=== PATIENT | female | born 1985 | race Caucasian/White ===

== ENCOUNTER 2019-09-15 13:00 | Day surgery (SDC) | payer BC ==
[2019-09-15 14:04] VITALS: BMI 29.2
[2019-09-15 15:47] LABS: FFN Internal QC Analyzer PASS (PASS); FFN Internal QC Cassette PASS (PASS); Fetal Fibronectin Negative (Negative)
[2019-09-15] MEDS ORDERED: hydrALAZINE 20 MG/ML VIAL SLOW IVP PRN (16:13)
--- NOTE | 2019-09-15 16:46 | PRG ---
DATE OF SERVICE: 09/15/2019 TIME OF SERVICE: 1610 hours. PRESENTING COMPLAINT: Pelvic pressure, 30 weeks' gestation with dichorionic diamniotic twin gestation. HISTORY OF PRESENT ILLNESS: Ms. Osborne is a 34-year-old 2, para 1, with EDC of 220, who was seen by Dr. Jimenez at [facility]. She has known dichorionic diamniotic twin with approximately 20% to 25% discordance and waiting transverse-transverse presentation. Early marginal previa has resolved. The patient reports that she had pressure today without discharge, rupture of membranes, leakage of fluid, or contractions. She was just concerned and wanted to get a check out. She has a scheduled ultrasound with Dr. Jimenez tomorrow. RECORDS CLERK HISTORY: x1. Blood type is A positive, antibody negative. Pap negative. Rubella immune. VDRL nonreactive. Hepatitis B, GC, chlamydia negative. PAST MEDICAL HISTORY: None. PAST SURGICAL HISTORY: Dental. ALLERGIES: NONE. MEDICATIONS: vitamins. SOCIAL HISTORY: Denies tobacco, alcohol, or IV drug use. FAMILY HISTORY: Noncontributory. REVIEW OF SYSTEMS: Noncontributory. PHYSICAL EXAMINATION: GENERAL: White female, in no acute distress. VITAL SIGNS: Blood pressure 110/72, pulse 85, respirations 18, and temperature 98.6. HEENT: Within normal limits. LUNGS: Clear to auscultation bilaterally. HEART: Regular rate and rhythm. ABDOMEN: Soft, nontender with a fundal height of 33 cm. FHTs 140s and 140s. No contractions noted. VULVA: Without lesions. VAGINA: Without discharge. CERVIX: Soft, but fingertip external os, but long, and closed internally. fibronectin was collected prior to cervical exam. EXTREMITIES: No clubbing, cyanosis, or edema. fibronectin was negative. Prolonged monitoring/nonstress test revealed category 1 tracing x2 with no contractions and no decelerations. IMPRESSION: Discomforts of at 30 weeks' gestation with dichorionic diamniotic twins. No evidence of labor with a negative fibronectin. PLAN: Discharge to home. Keep scheduled followup with Dr. Jimenez. XIOMY bose. Job ID: [id number]
== END 2019-09-15 16:18 | disposition home health service (06) ==
LOC: L&D/OP 13:00
PROVIDERS: ATTEND Obstetrics & Gynecology
DX: O30.043 Twin pregnancy, dichorionic/diamniotic, third trimester (principal); Z3A.30 30 weeks gestation of pregnancy
CPT/HCPCS: 82731

== ENCOUNTER 2019-11-03 07:30 | Inpatient (IN) | payer BC ==
[2019-11-07 13:51] VITALS: BMI 30.2
[2019-11-07] MEDS ORDERED: Promethazine HCl 25 MG SUPP PR PRN ×2 (14:06→19:12)
[2019-11-07] MEDS ORDERED: Ketorolac Tromethamine 30 MG/ML VIAL IVP PRN ×2 (14:06→19:12)
[2019-11-07] MEDS ORDERED: Meperidine HCl/PF 25 MG/ML VIAL SLOW IVP PRN (14:06)
[2019-11-07] MEDS ORDERED: Ondansetron HCl/PF 4 MG/2 ML Vial IVP PRN (14:06)
[2019-11-07] MEDS ORDERED: L&D-Morphine 4 MG/ML VIAL SLOW IVP PRN (14:06)
[2019-11-07] MEDS ORDERED: Promethazine HCl 25 MG/ML VIAL IM PRN ×2 (14:06→19:12)
[2019-11-07] MEDS ORDERED: Ondansetron PF 4 MG/2 ML Vial IVP PRN ×3 (14:06→19:12)
[2019-11-07] MEDS ORDERED: HYDROmorphone 2 MG/ML VIAL SLOW IVP PRN (14:06)
[2019-11-07] MEDS ORDERED: Naloxone HCl 0.4 mg/ml Vial IVP PRN ×2 (14:06)
[2019-11-07] MEDS ORDERED: diphenhydrAMINE 50 MG/ML VIAL IVP PRN ×2 (14:06→19:12)
[2019-11-07] MEDS ORDERED: Naloxone HCl 0.4 mg/ml Vial IV PRN ×4 (14:06→19:12)
[2019-11-07] MEDS ORDERED: hydrALAZINE 20 MG/ML VIAL SLOW IVP PRN ×2 (14:13→17:37)
[2019-11-07] MEDS ORDERED: Bicitra 30 ML UDCUP PO SCH (14:15)
[2019-11-07] MEDS ORDERED: PHENYLEPHRINE-NS 100 MCG/ML 10 ML SYRINGE ONE (14:15)
[2019-11-07] MEDS ORDERED: MORPHINE 5 MG/10 ML PF VIAL ONE (14:15)
[2019-11-07] MEDS ORDERED: Oxytocin 10 UNITS/ML VIAL ONE (14:15)
[2019-11-07] MEDS ORDERED: Ketorolac Tromethamine 30 MG/ML VIAL IVP SCH (14:15)
[2019-11-07] MEDS ORDERED: Communication Order-Pharmacy FS SCH (14:15)
[2019-11-07] MEDS ORDERED: Ketorolac Tromethamine 30 MG/ML VIAL ONE (14:16)
[2019-11-07 14:22] LABS: Hemoglobin 11.1 g/dL (12.0-16.0); Mean Corpuscular HGB CONC 33.9 g/dL (32.0-36.0); Mean Corpuscular Hemoglobin 31.4 pg (27.0-31.0); Mean Corpuscular Volume 92.5 fL (78.0-98.0); Mean Platelet Volume 9.5 fL (7.4-10.4); Platelet Count 180 thou/uL (130-400); RBC Distribution Width 11.2 % (11.5-14.5); Red Blood Cell (RBC) Count 3.55 mill/uL (4.20-5.40); White Blood Cell (WBC) Count 5.9 thou/uL (4.8-10.8)
[2019-11-07] MEDS ORDERED: CEFAZOLIN 2 GM in Premix Bag 1 BAG IVPB SCH (14:30)
[2019-11-07 15:00] LABS: HBSAg Index 0.26 S/CO (0-0.99); Hep B Surf Ag Non-Reactive S/CO (NonReactive)
[2019-11-07 15:01] LABS: Syphilis Antibody Nonreactive (Nonreactive); Syphilis Antibody Index 0.04 S/CO (<1.00 Non-Reactive)
--- NOTE | 2019-11-07 15:11 | PDOC.LDHP ---
Labor and Delivery H&P Chief complaint: scheduled section HPI: Pt is a 34yo P1 @ 37.4 weeks with di/di twins. Babies with discordant growth @ 20% today, an increase from the last US. Pt has planned for 1CS for twin delivery. Current gestational age (weeks): 37 Due date: 11/24/19 Dating criteria: first trimester ultrasound Grav: 2 Para: 1 Current complications: di/di twins Abnormal US findings: Yes (growth discordance) Current medications: pre- vitamins Previous surgical history: none Allergies/Adverse Reactions: Allergies Allergy/AdvReac Type Severity Reaction Status Date / Time No Known Allergies Allergy Verified 11/07/19 13:48 Social history: none - Physical Exam Vital signs reviewed and normal: yes General: NAD Heart: other Extremeties: no edema FHT: category 1 - OB Labs Blood type: A RH: positive Antibody Screen: negative HIV: negative RPR: negative HEPSAg: negative 1 hour GCT: negative GBS: positive Urine drug screen: negative Rubella: immune - Assessment L&D Assessment: scheduled primary section - Plan Plan: admit to L&D, to OR for section, informed consent obtained -: Di/Di twins at term with discordant growth. To OR for 1 CS.
[2019-11-07] MEDS ORDERED: Lactated Ringer's 1,000 ML IV SCH (15:15)
[2019-11-07] MEDS ORDERED: EPINEPHrine 1 MG/ML AMP ONE (15:19)
[2019-11-07] MEDS ORDERED: ePHEDrine/0.9% NaCl/PF SYRINGE 50 mg/10 ml ONE (15:20)
--- NOTE | 2019-11-07 15:52 | PDOC.OPDEL ---
OB Operative/Delivery Note Delivery Dr/Surgeon: Tony Assist: Judd Pre-Delivery Diagnosis: other (di/di twins, dicordant growth, 1CS planned) Weeks gestation: 37 Anesthesia: spinal - Findings A Sex: female B Sex: female - Additional Findings/Plan Placenta delivered: manual removal findings: low transverse hysterotomy without extension, normal uterus, normal tubes, normal ovaries Estimated blood loss: 400ml QBL pending Compilations/Other Findings: A vtx B delivered from complete breech Post delivery plan: routine recovery
[2019-11-07] MEDS ORDERED: Adacel (T-DAP) 0.5 ML SYRINGE IM ONE (17:37)
[2019-11-07] MEDS ORDERED: Lanolin Ointment 7 GM TUBE TOP PRN (17:37)
[2019-11-07] MEDS ORDERED: Zolpidem Tartrate 5 MG TAB PO PRN (17:37)
[2019-11-07] MEDS ORDERED: Bisacodyl 10 MG SUPP PR PRN (17:37)
[2019-11-07] MEDS ORDERED: HYDROcodone/Acetaminophen 5/325 mg Tablet PO PRN ×2 (17:37)
[2019-11-07] MEDS ORDERED: diphenhydrAMINE 25 MG CAP PO PRN (17:37)
[2019-11-07] MEDS ORDERED: NS / Oxytocin 40 units/1000ml 1,000 ML IV SCH (17:37)
[2019-11-07] MEDS ORDERED: Acetaminophen 325 MG TAB PO PRN (17:37)
--- NOTE | 2019-11-07 17:37 | OP ---
DATE OF PROCEDURE: 11/07/2019 PROCEDURE PERFORMED: Primary low-transverse section. PREOPERATIVE DIAGNOSES: 1. Dichorionic diamniotic twins at 37 weeks and 4 days. 2. Discordant growth. POSTOPERATIVE DIAGNOSIS: Status post primary section delivery. ENVIRONMENTAL ENGINEERING MANAGER: Lorna Whaley MD. COMPLICATIONS: None. ESTIMATED BLOOD LOSS: 400 mL. QUANTITATIVE BLOOD LOSS: Pending. ANESTHESIA: Spinal per Dr. Lyons OPERATIVE FINDINGS: 1. Low-transverse hysterotomy without extension. 2. Vigorous female infant, Apgars and weight pending at the time of delivery, delivered from vertex presentation as baby A to Nursery. 3. Vigorous female infant, Apgars and weight pending at the time of dictation, delivered from complete breech presentation without difficulty. 4. Amniotomy x2 with clear fluid x2. 5. Surgical site is hemostatic. 6. Fundus firm after delivery of the placenta. PROCEDURE IN DETAIL: The patient was taken back to the OR with IV fluids running. Once she was in the OR, spinal anesthesia was obtained and the patient was placed in dorsal supine position with a left lateral tilt. Vidal catheter was placed using sterile technique and the abdomen was prepped and draped in normal fashion for section. Surgeons were gowned and gloved. Anesthesia was tested and found to be adequate. A Pfannenstiel skin incision was made with a scalpel. The skin incision was carried down through subcutaneous tissue to the fascia. Once the fascia was reached, it was incised in the midline and extended superolaterally using curved Koroma scissors. Maxine clamps were then placed at the superior and inferior border of the fascia, which were sharply and bluntly dissected off the rectus abdominis muscles to allow adequate space for delivery of the infant. The rectus muscles were in the midline. The peritoneum was bluntly entered and stretched laterally. An Sai O retractor was placed in the peritoneal cavity for retraction, visualization, and protection of the wound. A bladder flap was created using Metzenbaum scissors and dissected away from the planned hysterotomy site. A low-transverse hysterotomy was made with a scalpel. After the hysterotomy was created, it was bluntly entered and stretched laterally using a Glass maneuver. The amniotomy was performed with clear fluid noted at baby A. Baby A was delivered vertex with gentle fundal pressure. Nose and mouth were suctioned. The cord was doubly clamped and cut. The infant was handed off to special care nurses in attendance. Next, the infant's feet were grasped at the level of the hysterotomy and amniotomy was performed. With gentle traction, the lower extremities and abdomen were spontaneously delivered to the shoulders. The left shoulder was delivered with gentle internal rotation of the arm across the chest. With gentle counter rotation, the contralateral upper extremity spontaneously delivered as well as the head. The nose and mouth were suctioned. The cord was doubly clamped and cut and the infant was handed off to special care nurse in attendance. Cord bloods were collected separately and labeled. The placentas were delivered. The uterus was exteriorized, massaged to firm and cleared of clot and debris. The uterus was returned to the abdominal cavity. The hysterotomy was inspected with no extension noted. Hysterotomy was closed in a running locked fashion with Monocryl suture. After the hysterotomy was closed, it was copiously irrigated and suctioned dry. The hysterotomy was inspected again with no areas of bleeding noted. The Sai O retractor was removed from the abdominal cavity. The rectus muscles and fascia were inspected and any small areas of bleeding were controlled with Bovie cauterization. The fascia was reapproximated from corner to corner with PDS suture. The subcutaneous tissue was irrigated and dry. Any small areas of bleeding were controlled with Bovie cauterization. Subcutaneous tissue was reapproximated in the midline with interrupted plain gut sutures. The skin was closed with 4-0 Monocryl and dressed with Dermabond dressing. The patient tolerated the procedure well. There were no complications. Job ID: [id number]
[2019-11-07] MEDS: Lactated Ringer's 1,000 ML IV SCH (18:36)
[2019-11-07] MEDS ORDERED: Hydrocerin (Eucerin) Cream 120 gm Jar TOP PRN (19:12)
[2019-11-07] MEDS ORDERED: NO PO,IM,IV OR SC NARCOTICS FOR 12HR EXCEPT BY ANESTHESIA PO SCH (19:12)
[2019-11-07] MEDS ORDERED: Ibuprofen 800 MG TAB PO SCH (22:00)
[2019-11-07] MEDS: Ferrous Sulfate 325 MG TAB PO SCH (23:25)
[2019-11-07] MEDS: Docusate Calcium (SURFAK) 240 MG CAP PO SCH (23:33)
[2019-11-08] MEDS ORDERED: Sodium Chloride 0.9% 10 ML ONE (00:55)
[2019-11-08 05:50] LABS: Hemoglobin 10.6 g/dL (12.0-16.0); Mean Corpuscular HGB CONC 33.7 g/dL (32.0-36.0); Mean Corpuscular Hemoglobin 31.5 pg (27.0-31.0); Mean Corpuscular Volume 93.4 fL (78.0-98.0); Mean Platelet Volume 8.8 fL (7.4-10.4); Platelet Count 152 thou/uL (130-400); RBC Distribution Width 11.3 % (11.5-14.5); Red Blood Cell (RBC) Count 3.35 mill/uL (4.20-5.40); White Blood Cell (WBC) Count 10.2 thou/uL (4.8-10.8)
[2019-11-08] MEDS: Lactated Ringer's 1,000 ML IV SCH ×2 (05:55→21:34)
[2019-11-08] MEDS ORDERED: Zolpidem Tartrate 5 MG TAB PO PRN (06:45)
--- NOTE | 2019-11-08 08:18 | OP ---
DATE OF PROCEDURE: 11/07/2019 ADDENDUM: I was present and scrubbed to assist the uncomplicated primary low-transverse with Dr. Jose Jimenez. Please see her note for full details. Job ID: [id number]
[2019-11-08] MEDS: HYDROcodone/Acetaminophen 5/325 mg Tablet PO PRN ×3 (09:10→20:10)
[2019-11-08] MEDS: Simethicone Chewable 80 MG TAB PO PRN ×2 (09:10→15:40)
[2019-11-08] MEDS: Docusate Calcium (SURFAK) 240 MG CAP PO SCH ×2 (09:10→20:10)
[2019-11-08] MEDS: Prenatal Vitamin 1 TAB PO SCH (09:10)
[2019-11-08] MEDS: Ferrous Sulfate 325 MG TAB PO SCH ×2 (09:13→20:11)
--- NOTE | 2019-11-08 11:20 | PDOC.PP ---
Post Progress Note Post Day #: 1 Subjective: Pt doing well, one baby in room, one baby in NICU. Minimal pain, no N/V, ambulating and voiding well. PO intake tolerated: yes Flatus: yes Ambulation: yes Vital Signs (12 hours) Temp Pulse Resp BP Pulse Ox 11/08/19 08:28 98.3 F 77 20 117/71 97 11/08/19 05:10 98.6 F 80 16 128/81 98 11/07/19 23:35 98.6 F 71 16 127/76 96 Weight Weight 165 lb - Physical Examination General: NAD Respiratory: non-labored breathing Abdominal: no distention Neurological: no gross focal deficits Psychiatric: A&Ox3, normal affect Result Diagrams: 11/08/19 05:34 Additional Labs: Post Labs Blood Type A POSITIVE 11/07/19 14:08 Hep Bs Antigen Non-Reactive S/CO (NonReactive) 11/07/19 14:08 (1) Dichorionic diamniotic twin gestation Code(s): O30.049 - TWIN , DICHORIONIC/DIAMNIOTIC, UNSP TRIMESTER Status: Acute (2) S/P primary low transverse Code(s): Z98.891 - HISTORY OF UTERINE SCAR FROM PREVIOUS SURGERY Status: Acute - Assessment/Plan POD1, doing well, meeting post op goals. Plan of care reviewed.
[2019-11-08] MEDS: Ibuprofen 800 MG TAB PO SCH (20:10)
[2019-11-09] MEDS: Ibuprofen 800 MG TAB PO SCH ×3 (05:45→20:38)
[2019-11-09] MEDS: HYDROcodone/Acetaminophen 5/325 mg Tablet PO PRN ×2 (05:45→10:29)
[2019-11-09] MEDS: Ferrous Sulfate 325 MG TAB PO SCH ×2 (09:20→20:39)
[2019-11-09] MEDS: Docusate Calcium (SURFAK) 240 MG CAP PO SCH ×2 (09:20→20:38)
[2019-11-09] MEDS: Prenatal Vitamin 1 TAB PO SCH (09:20)
--- NOTE | 2019-11-09 12:06 | PDOC.PP ---
Post Progress Note Post Day #: 2 Subjective: Doing well, no concerns with feeding, minimal discomfort, ambulating well. Baby B in NICU still. PO intake tolerated: yes Flatus: yes Ambulation: yes Vital Signs (12 hours) Temp Pulse Resp BP Pulse Ox 11/09/19 11:47 98.0 F 72 20 120/78 11/09/19 08:11 98.5 F 64 20 122/72 97 11/09/19 05:49 98.5 F 73 113/76 Weight Weight 165 lb - Physical Examination General: NAD Respiratory: non-labored breathing Abdominal: no distention Skin: CS incision dry & intact Psychiatric: A&Ox3, normal affect Result Diagrams: 11/08/19 05:34 Additional Labs: Post Labs Blood Type A POSITIVE 11/07/19 14:08 Hep Bs Antigen Non-Reactive S/CO (NonReactive) 11/07/19 14:08 (1) Dichorionic diamniotic twin gestation Code(s): O30.049 - TWIN , DICHORIONIC/DIAMNIOTIC, UNSP TRIMESTER Status: Acute (2) S/P primary low transverse Code(s): Z98.891 - HISTORY OF UTERINE SCAR FROM PREVIOUS SURGERY Status: Acute - Assessment/Plan POD2 doing well, possible DC tomorrow home vs. bed/breakfast.
[2019-11-09] MEDS: Lactated Ringer's 1,000 ML IV SCH (14:13)
[2019-11-10] MEDS: Ibuprofen 800 MG TAB PO SCH (05:46)
[2019-11-10] MEDS: Lactated Ringer's 1,000 ML IV SCH (07:46)
[2019-11-10] MEDS: Ferrous Sulfate 325 MG TAB PO SCH (07:47)
[2019-11-10 08:01] VITALS: BP 118/81; TEMP 98.3
--- NOTE | 2019-11-10 08:33 | PDOC.PP ---
Post Progress Note Post Day #: 3 Subjective: doing well, post op goals met desires DC home PO intake tolerated: yes Flatus: yes Ambulation: yes Vital Signs (12 hours) Temp Pulse Resp BP Pulse Ox 11/10/19 08:00 98.3 F 70 20 118/81 99 11/09/19 20:45 98.6 F 75 16 110/69 98 Weight Weight 165 lb - Physical Examination General: NAD Respiratory: non-labored breathing Abdominal: no distention Skin: CS incision dry & intact, no rash Neurological: no gross focal deficits Psychiatric: A&Ox3, normal affect Result Diagrams: 11/08/19 05:34 Additional Labs: Post Labs Blood Type A POSITIVE 11/07/19 14:08 Hep Bs Antigen Non-Reactive S/CO (NonReactive) 11/07/19 14:08 (1) Dichorionic diamniotic twin gestation Code(s): O30.049 - TWIN , DICHORIONIC/DIAMNIOTIC, UNSP TRIMESTER Status: Acute (2) S/P primary low transverse Code(s): Z98.891 - HISTORY OF UTERINE SCAR FROM PREVIOUS SURGERY Status: Acute - Assessment/Plan POD3 doing well, 1 CS twins, DC home today. [facility] info given re: baby A.
[2019-11-10] MEDS: Docusate Calcium (SURFAK) 240 MG CAP PO SCH (09:20)
[2019-11-10] MEDS: Prenatal Vitamin 1 TAB PO SCH (09:20)
[2019-11-10] MEDS: HYDROcodone/Acetaminophen 5/325 mg Tablet PO PRN (10:50)
== END 2019-11-10 14:15 | disposition home or self-care (01) | DRG 788 ==
LOC: L&D-LIB 11-07 13:01 → 3SW 11-07 18:18
PROVIDERS: ADMIT Obstetrics & Gynecology; ATTEND Obstetrics & Gynecology
PROC: 10D00Z1 Extraction of Products of Conception, Low, Open Approach (ICD-10-PCS; principal; 2019-11-07)
DX: O30.043 Twin pregnancy, dichorionic/diamniotic, third trimester (principal); Z3A.37 37 weeks gestation of pregnancy; Z37.2 Twins, both liveborn; O36.5930 Maternal care for other known or suspected poor fetal growth, third trimester, not applicable or unspecified
CPT/HCPCS: 36415; 51702; 85027; 86780; 86850; 86900; 86901; 87340; J0171; J0690; J1885; J2274; J2590